=== PATIENT | male | born 1960 | race Caucasian/White ===

== ENCOUNTER 2022-08-12 13:17 | Day surgery (SDC) | payer SELFPAY ==
[2022-08-12] MEDS ORDERED: MORPHINE 4 MG/ML SYR ONE ×2 (13:41→17:51)
[2022-08-12] MEDS ORDERED: NA CHLORIDE 0.9% 1,000 ML ONE ×2 (13:41→16:19)
[2022-08-12] MEDS ORDERED: ONDANSETRON 4 MG/2 ML VIAL ONE ×2 (13:41→21:03)
[2022-08-12 14:08] LABS: Absolute Lymphocytes (CBC) 1.4 K/uL (0.7-4.9); Hematocrit 41.3 % (39.6-49.0); Lymphocytes % 10.2 % (15.3-44.8); MCV 90.7 fL (80-100); MPV 7.9 fL (7.6-11.3); RBC Red Blood Cell Count 4.56 M/uL (4.33-5.43)
[2022-08-12 14:26] LABS: Bilirubin Total 0.6 mg/dL (0.2-1.0); Protein, Total 7.9 g/dL (6.4-8.2)
[2022-08-12 14:29] LABS: Potassium 4.2 mmol/L (3.5-5.1)
[2022-08-12 15:11] LABS: Urine Blood 1+ (Negative); Urine Glucose Negative (Negative); Urine Protein 2+ (Negative); Urine Specific Gravity 1.025 (1.005-1.030)
--- NOTE | 2022-08-12 15:12 | RAD REPORT ---
EXAM DESCRIPTION: CT - Abdomen Pelvis W Contrast - 08/12/2022 2:56 pm CLINICAL HISTORY: Abdominal pain/right lower quadrant pain COMPARISON: none. TECHNIQUE: Computed axial tomography of the abdomen pelvis was obtained. 100 cc Isovue-300 was admin istered intravenously. Oral contrast was not requested which limits evaluation of bowel and appendix All CT scans are performed using dose optimization technique as appropriate and may include automated exposure control or mA/KV adjustment according to patient size. FINDINGS: Multiple bilateral renal calculi Mild right hydronephrosis. A 7 millimeter calculus proximal right ureter. Mild fatty infiltration liver. Small cyst. Spleen, pancreas and adrenals unremarkable. Mild enlargement of the appendix. It is not fluid-filled. No stranding within the adjacent fat. Small right and small to moderate left inguinal hernias contain fat. Prostate gland mildly enlarged. No evidence of diverticulitis. Post surgical changes involve the spine. Small umbilical hernia. Small hiatal hernia IMPRESSION: 7 millimeter calculus proximal right ureter resulting in mild right hydronephrosis Mild enlargement of the appendix. This probably is a normal finding for the patient given the lack of stranding within the adjacent fat and lack of fluid within the appendix. However, this should be cor related clinically.
[2022-08-12 16:44] LABS: SARS-CoV-2 Antigen Rapid Res Negative (Negative)
--- NOTE | 2022-08-12 20:36 | ER ---
Nurse's Notes [facility] Name: Renaldo Estrella Age: 62 yrs Sex: Male : 1960 Arrival Date: 08/12/2022 Time: 13:18 Bed 13 Private MD: Diagnosis: Hydronephrosis with renal and ureteral calculous obstruction Presentation: 08/12 13:31 Chief complaint: Patient states: he started having right lower abdominal pain and right ap3 flank pain last night, and into this morning. patient also reports difficulty urinating since this morning. patient states pain is 10/10. patient also reports nausea and vomiting associated with the pain. Coronavirus screen: At this time, the client does not indicate any symptoms associated with coronavirus-19. Ebola Screen: No symptoms or risks identified at this time. Initial Sepsis Screen: Does the patient meet any 2 criteria? No. Patient's initial sepsis screen is negative. Does the patient have a suspected source of infection? No. Patient's initial sepsis screen is negative. Risk Assessment: Do you want to hurt yourself or someone else? Patient reports no desire to harm self or others. Onset of symptoms was August 11, 2022. 13:31 Method Of Arrival: Ambulatory ap3 13:31 Acuity: ANUJ 3 ap3 Triage Assessment: 13:35 General: Appears uncomfortable, Behavior is calm, cooperative. Pain: Complains of pain ap3 in right lower quadrant and right lower flank Pain currently is 10 out of 10 on a pain scale. Pain began gradually, 1 day ago. Neuro: Level of Consciousness is awake, alert, obeys commands, Oriented to person, place, time, situation, Gait is steady. Cardiovascular: Patient's skin is warm and dry. Respiratory: Airway is patent Respiratory effort is even, unlabored. GI: Reports nausea, vomiting. Historical: - Allergies: 13:33 No Known Allergies; ap3 - Home Meds: 13:33 gabapentin oral [Active]; losartan-hydrochlorothiazide oral [Active]; fenofibrate oral ap3 [Active]; amlodipine oral [Active]; rosuvastatin oral [Active]; - PMHx: 13:33 Hypertensive disorder; ap3 - Immunization history:: Client reports having NOT received the Covid vaccine. Flu vaccine is not up to date. - Social history:: Smoking status: Patient reports the use of cigarette tobacco products, smokes one pack cigarettes per day. Screenin:36 [facility] ED Fall Risk Assessment (Adult) History of falling in the last 3 months, ap3 including since admission No falls in past 3 months (0 pts). Abuse screen: Denies threats or abuse. Nutritional screening: No deficits noted. Tuberculosis screening: No symptoms or risk factors identified. Assessment: 14:30 Reassessment: Patient appears in no apparent distress at this time. patient states "I kr3 feel so much better, the medication worked". 15:30 Reassessment: Patient appears in no apparent distress at this time. Patient states kr3 symptoms have improved. 16:29 Reassessment: Patient appears in no apparent distress at this time. Patient and/or kr3 family updated on plan of care and expected duration. Pain level reassessed. Patient is alert, oriented x 3, equal unlabored respirations, skin warm/dry/pink. 17:30 Reassessment: Patient appears in no apparent distress at this time. pain is starting to kr3 return. 18:33 Reassessment: Patient appears in no apparent distress at this time. Patient and/or kr3 family updated on plan of care and expected duration. Pain level reassessed. Patient is alert, oriented x 3, equal unlabored respirations, skin warm/dry/pink. 19:34 General: Appears uncomfortable, Behavior is calm, cooperative, appropriate for age. aa9 Pain: Denies pain. Neuro: Level of Consciousness is awake, alert, obeys commands, Oriented to person, place, time, situation. Respiratory: Airway is patent Respiratory effort is even, unlabored. 20:34 Reassessment: Patient appears in no apparent distress at this time. Patient and/or aa9 family updated on plan of care and expected duration. Pain level reassessed. OR nurse at bedside with daughter. 20:39 Reassessment: Patient appears in no apparent distress at this time. Patient is alert, aa9 oriented x 3, equal unlabored respirations, skin warm/dry/pink. Patient denies pain at this time. Vital Signs: 13:31 BP 158 / 85; Pulse 73; Resp 18; Temp 97.9; Pulse Ox 97% ; Weight 105.23 kg; Height 5 ap3 ft. 7 in. (170.18 cm); Pain 10/10; 15:30 BP 125 / 74; Pulse 86; Resp 17; Pulse Ox 96% on R/A; kr3 16:30 BP 134 / 78; Pulse 78; Resp 17; Pulse Ox 98% on R/A; kr3 17:30 BP 128 / 71; Pulse 76; Resp 17; Pulse Ox 98% on R/A; kr3 18:37 BP 117 / 66; Pulse 80; Resp 17; Pulse Ox 96% on R/A; kr3 19:15 BP 132 / 72; Pulse 73; Resp 19 S; Pulse Ox 97% ; aa9 20:15 BP 133 / 65; Pulse 76; Resp 19 S; Pulse Ox 96% on R/A; aa9 13:31 Body Mass Index 36.34 (105.23 kg, 170.18 cm) ap3 ED Course: 13:18 Patient arrived in ED. as 13:20 Martín Mo PA is PHCP. jmm 13:20 Kameron Yan MD is Attending Physician. jmm 13:28 Lorna Lehman RN is Primary Nurse. kr3 13:33 Triage completed. ap3 13:37 Arm band placed on right wrist. ap3 13:37 Patient has correct armband on for positive identification. Placed in gown. Bed in low ap3 position. Call light in reach. Side rails up X 1. Pulse ox on. NIBP on. Door closed. Noise minimized. 14:01 Inserted saline lock: 22 gauge in right antecubital area, using aseptic technique. kr3 14:01 Missed attempt(s): 20 gauge in right antecubital area. Bleeding controlled, band aid kr3 applied, catheter tip intact. 14:58 CT Abd/Pelvis - IV Contrast Only In Process Unspecified. EDMS 16:26 SARS RAPID Sent. kr3 20:35 Milton Solano MD is Hospitalizing Provider. pm1 20:38 No provider procedures requiring assistance completed. Patient admitted, IV remains in aa9 place. Administered Medications: 14:01 Drug: NS 0.9% 1000 ml Route: IV; Rate: 1 bolus; Site: right antecubital; kr3 18:17 Follow up: Response: No adverse reaction; IV Status: Completed infusion; IV Intake: kr3 1000ml 14:01 Drug: Zofran (Ondansetron) 4 mg Route: IVP; Site: right antecubital; kr3 18:18 Follow up: Response: No adverse reaction kr3 14:01 Drug: morphine 4 mg Route: IVP; Infused Over: 4 mins; Site: right antecubital; kr3 18:18 Follow up: Response: No adverse reaction; RASS: Alert and Calm (0) kr3 17:25 Drug: NS 0.9% 1000 ml Route: IV; Rate: 1 bolus; Site: left forearm; kr3 20:39 Follow up: Response: No adverse reaction; IV Status: Infusion continued upon admission; aa9 IV Intake: 700ml 18:08 Drug: morphine 4 mg Route: IVP; Infused Over: 4 mins; Site: right antecubital; kr3 20:40 Follow up: Response: No adverse reaction aa9 Medication: 20:39 VIS not applicable for this client. aa9 Intake: 18:17 IV: 1000ml; Total: 1000ml. kr3 20:39 IV: 700ml; Total: 1700ml. aa9 Outcome: 20:36 Decision to Hospitalize by Provider. pm1 20:38 Admitted to OR accompanied by nurse, via wheelchair, with chart. aa9 20:38 Condition: stable 20:38 Instructed on the need for admit. 20:39 Patient left the ED. aa9 Signatures: Dispatcher [employer] EDMS Martín Mo PA PA jmm Martinez, Amelia as Marinas, Patrick, RUBBER FLAP TUBER MACHINE OPERATOR RUBBER FLAP TUBER MACHINE OPERATOR pm1 Natalia Jaime RN RN danica3 Maricel Davis RN RN aa9 Lorna Lehman RN RN kr3 Corrections: (The following items were deleted from the chart) 16:29 16:27 Reassessment: kr3 kr3 16:50 16:29 BP 125 / 74; Pulse 86bpm; Resp 17bpm; Pulse Ox 96% RA; kr3 kr3
--- NOTE | 2022-08-12 20:36 | EDPHYS ---
Physician Documentation [facility] Name: Renaldo Estrella Age: 62 yrs Sex: Male : 1960 Arrival Date: 08/12/2022 Time: 13:18 Bed 13 Private MD: ED Physician Kameron Yan HPI: 08/12 13:31 This 62 yrs old Male presents to ER via Ambulatory with complaints of Abdominal Pain, jmm Vomiting. 13:31 The patient presents with abdominal pain. Onset: The symptoms/episode began/occurred jmm gradually, yesterday. The symptoms radiate to. This is a 62-year-old male with history of hypertension that presents to the emergency department with complaints of right flank pain and right lower abdominal pain beginning last night. Patient states he is been vomiting all day. Unable to tolerate fluids.. Historical: - Allergies: 13:33 No Known Allergies; ap3 - Home Meds: 13:33 gabapentin oral [Active]; losartan-hydrochlorothiazide oral [Active]; fenofibrate oral ap3 [Active]; amlodipine oral [Active]; rosuvastatin oral [Active]; - PMHx: 13:33 Hypertensive disorder; ap3 - Immunization history:: Client reports having NOT received the Covid vaccine. Flu vaccine is not up to date. - Social history:: Smoking status: Patient reports the use of cigarette tobacco products, smokes one pack cigarettes per day. ROS: 13:31 Constitutional: Negative for fever, chills, and weight loss, Cardiovascular: Negative jmm for chest pain, palpitations, and edema, Respiratory: Negative for shortness of breath, cough, wheezing, and pleuritic chest pain. 13:31 Abdomen/GI: Positive for abdominal pain, nausea and vomiting. 13:31 Back: Positive for flank pain, on the right. 13:31 All other systems are negative. Exam: 13:31 Constitutional: This is a well developed, well nourished patient who is awake, alert, jmm and in no acute distress. Head/Face: atraumatic. Eyes: EOMI, no conjunctival erythema appreciated ENT: Moist Mucus Membranes Neck: Trachea midline, Supple Chest/axilla: Normal chest wall appearance and motion. Cardiovascular: Regular rate and rhythm. No edema appreciated Respiratory: Normal respirations, no respiratory distress appreciated 13:31 Skin: General appearance color normal MS/ Extremity: Moves all extremities, no obvious deformities appreciated, no edema noted to the lower extremities Neuro: Awake and alert Psych: Behavior is normal, Mood is normal, Patient is cooperative and pleasant 13:31 Abdomen/GI: Inspection: abdomen appears normal, Bowel sounds: normal, Palpation: soft, mild abdominal tenderness. 13:31 Back: CVA tenderness, that is moderate, is noted on the right. Vital Signs: 13:31 BP 158 / 85; Pulse 73; Resp 18; Temp 97.9; Pulse Ox 97% ; Weight 105.23 kg; Height 5 ap3 ft. 7 in. (170.18 cm); Pain 10/10; 15:30 BP 125 / 74; Pulse 86; Resp 17; Pulse Ox 96% on R/A; kr3 16:30 BP 134 / 78; Pulse 78; Resp 17; Pulse Ox 98% on R/A; kr3 17:30 BP 128 / 71; Pulse 76; Resp 17; Pulse Ox 98% on R/A; kr3 18:37 BP 117 / 66; Pulse 80; Resp 17; Pulse Ox 96% on R/A; kr3 19:15 BP 132 / 72; Pulse 73; Resp 19 S; Pulse Ox 97% ; aa9 20:15 BP 133 / 65; Pulse 76; Resp 19 S; Pulse Ox 96% on R/A; aa9 13:31 Body Mass Index 36.34 (105.23 kg, 170.18 cm) ap3 MDM: 13:31 Patient medically screened. [facility] 18:45 Data reviewed: vital signs, nurses notes. Consideration of Admission/Observation. [facility] Management of patient was discussed with the following: Procurement Intern: I discussed the patient with Dr. Solano. Will take the patient to the OR for stent placement. I considered the following discharge prescriptions or medication management in the emergency department Medications were administered in the Emergency Department. See MAR. Historians other than the Patient: Daughter/Son: Daughter. Counseling: I had a detailed discussion with the patient and/or guardian regarding: the historical points, exam findings, and any diagnostic results supporting the discharge/admit diagnosis, lab results, radiology results. Transition of care: After a detail discussion of the patient's case, care is transferred to Lalit Bauman NP. ED course: I discussed the patient with Dr. Solano whom recommended stent placement. Patient's normal creatinine is around 0.9 per lab taken earlier this month. Currently 1.52. Patient given IV fluids. Pain is currently under control. I did reevaluate the patient due to the CT findings of borderline appendix. Patient has no guarding or rebound in the right lower quadrant at this time. CT does not reveal any other signs of appendicitis. I do not currently suspect acute appendicitis 1 time of stent placement.. 08/12 13:31 Order name: CBC with Diff; Complete Time: 14:13 [facility] 08/12 13:31 Order name: CMP; Complete Time: 14:32 [facility] 08/12 13:31 Order name: Lipase; Complete Time: 14:32 [facility] 08/12 13:31 Order name: CT Abd/Pelvis - IV Contrast Only; Complete Time: 15:13 [facility] 08/12 15:11 Order name: Urine Dipstick-Ancillary; Complete Time: 15:13 [facility] 08/12 16:06 Order name: SARS RAPID; Complete Time: 16:58 [facility] 08/12 13:31 Order name: IV Saline Lock; Complete Time: 14:01 [facility] 08/12 13:31 Order name: Labs collected and sent; Complete Time: 14:01 [facility] 08/12 13:31 Order name: Urine Dipstick-Ancillary (obtain specimen); Complete Time: 15:24 [facility] 08/12 16:18 Order name: EKG - Nurse/Tech; Complete Time: 16:47 jm Administered Medications: 14:01 Drug: NS 0.9% 1000 ml Route: IV; Rate: 1 bolus; Site: right antecubital; kr3 18:17 Follow up: Response: No adverse reaction; IV Status: Completed infusion; IV Intake: kr3 1000ml 14:01 Drug: Zofran (Ondansetron) 4 mg Route: IVP; Site: right antecubital; kr3 18:18 Follow up: Response: No adverse reaction kr3 14:01 Drug: morphine 4 mg Route: IVP; Infused Over: 4 mins; Site: right antecubital; kr3 18:18 Follow up: Response: No adverse reaction; RASS: Alert and Calm (0) kr3 17:25 Drug: NS 0.9% 1000 ml Route: IV; Rate: 1 bolus; Site: left forearm; kr3 20:39 Follow up: Response: No adverse reaction; IV Status: Infusion continued upon admission; aa9 IV Intake: 700ml 18:08 Drug: morphine 4 mg Route: IVP; Infused Over: 4 mins; Site: right antecubital; kr3 20:40 Follow up: Response: No adverse reaction aa9 Disposition Summary: 08/12/22 20:36 Hospitalization Ordered Hospitalization Status: Observation pm1 Provider: Milton Solano pm1 Location: Operating Room pm1 Condition: Stable pm1 Problem: new pm1 Symptoms: have improved pm1 Bed/Room Type: Standard pm1 Room Assignment: pm1 Diagnosis - Hydronephrosis with renal and ureteral calculous obstruction pm1 Forms: - Medication Reconciliation Form pm1 - SBAR form pm1 Signatures: Dispatcher [employer] EDMS Martín Mo PA PA inderm Lalit Bauman, NICOLE HORTICULTURAL MANAGER pm1 Natalia Jaime RN RN ap3 Lorna Lehman RN RN kr3 Maricel Davis RN aa9
[2022-08-12] MEDS ORDERED: Ringers Lactate 1,000 ML IV ONE (20:56)
[2022-08-12] MEDS ORDERED: FENTANYL CITR 100 MCG/2 ML ONE (21:02)
[2022-08-12] MEDS ORDERED: MIDAZOLAM HCL 2 MG/2 ML INJ ONE (21:02)
[2022-08-12] MEDS ORDERED: LIDOCAINE 1% MPF 5 ML VIAL ONE (21:02)
[2022-08-12] MEDS ORDERED: propofoL 200 MG/20 ML VIAL IV ONE (21:02)
[2022-08-12] MEDS ORDERED: KETOROLAC 30 MG/ML INJ ONE (21:03)
[2022-08-12] MEDS ORDERED: CEFAZOLIN SODIUM 1 GM/VIAL ONE (21:05)
[2022-08-12] MEDS ORDERED: PHENAZOPYRIDINE 100MG TAB PO ONE ×2 (22:00→22:17)
[2022-08-12] MEDS ORDERED: CODEINE 30MG/APAP 300MG TAB PO PRN ×2 (22:00→22:04)
[2022-08-12] MEDS ORDERED: CODEINE 30MG/APAP 300MG TAB ONE (22:17)
[2022-08-12 22:18] VITALS: TEMP 99; O2SAT 99
--- NOTE | 2022-08-12 22:22 | RAD REPORT ---
EXAM DESCRIPTION: RAD - Cystography - 08/12/2022 9:49 pm CLINICAL HISTORY: ICD N 20.0 FINDINGS: 5 fluoroscopic spot images obtained. Fluoroscopy time 0 minutes Right ureter was cannulated and contrast administered. Subsequently an ureteral stent was placed. Exa mination was performed by Dr Solano
[2022-08-12 22:44] VITALS: BP 129/78
--- NOTE | 2022-08-13 03:29 | CON ---
Reason For Consultation: Right flank pain. History Of Present Illness: Mr. Estrella is a 62-year-old gentleman with hypertension status post chol ecystectomy who presents with right flank pain that radiated into his right lower quadrant and inguin al scrotal region that began last night around 7 p.m. This was associated with some nausea and vomit ing, and he also was feverish with chills during the night. Eventually, he presented to the Emergenc y Department for evaluation and was evaluated as follows. CT scan on 08/12/2022 of abdomen and pelvis with contrast revealed a 7 mm calculus in proximal right ureter with mild right hydronephrosis. There was also questionable enlargement of the appendix witho ut stranding of the adjacent fat suggestive of actual appendicitis. As a result, I was contacted by the Emergency Department, who was concerned about his pain being pote ntially secondary to the ureterolithiasis, but also possible appendicitis. Past Medical History: Hypertension. Past Surgical History: Cholecystectomy and L4-5 fusion. Allergies: NONE KNOWN. Social History: He is an active smoker of 1 pack per day and has done so for 30 years. Medications: Reviewed. Physical Examination: General: The patient was well appearing and in no acute distress at the time of my evaluation, susi g been made comfortable in the Emergency Department. He was alert, awake, and oriented x3. There wa s no dyspnea or sign of respiratory distress. Abdomen: Soft, nontender, moderately obese. He was resting comfortably in the stretcher. Laboratory Analysis: Revealed a creatinine of 1.5 with a prior baseline creatinine of less than 0.9. Assessment And Recommendations: This is a 62-year-old gentleman with hypertension, status post shabnam cystectomy who has had a prior episode of stones status post extracorporeal shock wave lithotripsy an d now with right 7 mm proximal ureteral calculus with hydronephrosis, anorexia, and acute kidney inju ry. I counseled him on the recommendation for placement of a right ureteral stent to allow recovery of th e kidney function and to relieve the obstruction causing the kidney injury. I explained the potentia l for stent pain in detail, and discussed that the stent is a foreign body that will need to be remov ed within 6 months maximum. I explained the plan for subsequent follow up in my office to discuss de finitive surgical management of the stone as it is unlikely to pass with a stent in place. Subsequen tly the patient will require metabolic evaluation given his recurrent stone forming events. WR/MODL Voice ID: [id number] Report ID: [id number]
--- NOTE | 2022-08-13 03:40 | OP ---
Surgeon: ALONZO PEDROZA Preoperative Diagnoses: 1.Right ureterolithiasis. 2.Right hydronephrosis. 3.Acute kidney injury. Postoperative Diagnoses: 1.Right ureterolithiasis. 2.Right hydronephrosis. 3.Acute kidney injury. Principal Procedures: 1.Cystoscopy. 2.Right retrograde pyelography. 3.Right ureteral stent placement. Indication For Procedure: Mr. Ritchie is a 62-year-old gentleman with hypertension and history of cho lecystectomy who is a recurrent stone former and presented to the Emergency Department with a 7 mm pr oximal ureteral calculus on the right with hydronephrosis, flank pain, anorexia, and acute kidney inj ury with a creatinine of 1.5 over his baseline of 0.9. As a result, he was counseled on the recommen dation for right ureteral stent placement in advance of definitive surgical management via ureterosco py with laser lithotripsy. Procedure In Detail: The patient was consented in the preoperative holding area before being transfe rred to the operative suite where general anesthesia was induced. He was given Ancef 2 g IV antimicr obial prophylaxis and Pneumoboots were provided for DVT prophylaxis. He was placed supine on the ope rative table and then in the lithotomy position, padded and secured to the table appropriately. His genitalia were prepped with Hibiclens and he was draped in standard fashion. The case was begun usin g a 22-Filipino rigid cystoscope to traverse the urethra and into the bladder with ease. The bladder w as surveyed briefly, and there were no papillary mucosal lesions, foreign bodies, or stones noted thr oughout. The ureteral orifices were orthotopic in location and there was no evident hematuria. The right ureteral orifice was cannulated using the tip of a 5-Filipino ureteral access catheter and a retr ograde pyelogram was performed. Right retrograde pyelography: Using a 70:30 mixture of Omnipaque and saline, spot fluoroscopic image ry was obtained along multiple points to delineate the collecting system and anatomy. On initial spo t fluoroscopic imagery, the right kidney had delayed retention of contrast within the collecting syst em and the proximal ureter down to the level of the mid proximal ureter where further contrast did no t drain. There was moderate hydronephrosis with some moderate caliectasis. The ureter was also dila jose to that point. I then injected contrast in a retrograde fashion and delineated the distal ureter and the contrast passed the point of obstruction with the stone and into the renal pelvis and calyce s with ease, delineating them perfectly. As a result, I passed the Bentson guidewire via the 5-Frenc h ureteral access catheter and it did coil in the upper pole of the kidney as evident fluoroscopicall y. Over the Bentson guidewire, I then passed a 6 x 26-Filipino double-J ureteral stent with a coil obs erved fluoroscopically in the upper pole and one cystoscopically formed in the bladder. His bladder was then decompressed off fluid and urine, and he was awakened from general anesthesia after the scop e was removed. He was taken out of the lithotomy position. He was then transferred to a stretcher a nd then to the recovery room in good condition. Complications: None. Discharge Disposition: He should follow up in the Urology Clinic for evaluation and discussion in pr eparation for definitive management via right ureteroscopy with laser lithotripsy and stent exchange in the coming weeks. I counseled the patient preoperatively that the stent was a foreign body that m ust be removed to prevent complications, which I detailed to him. REGULO/MODL Voice ID: [id number] Report ID: [id number]
--- NOTE | 2022-08-13 13:16 | EKG ---
Test Date: 2022-08-12 Test Time: 16:42:50 Diabetes Clinical Manager: NICOLE MEASUREMENT RESULTS: Intervals: Rate: 78 TN: 174 QRSD: 124 QT: 396 QTc: 451 Hitchcock: P: 49 TN: 174 QRS: 47 T: 43 INTERPRETIVE STATEMENTS: Normal sinus rhythm RSR' or QR pattern in V1 suggests right ventricular conduction delay Borderline ECG No previous ECG available for comparison Electronically Signed On 08-13-22 13:14:50 PHOTOGRAPHIC ENLARGER OPERATOR by Tai Vargas
== END 2022-08-12 22:40 | disposition home or self-care (01) ==
LOC: ER 13:17 → DS 20:56
PROVIDERS: ATTEND Urology
PROC: 0T768DZ Dilation of Right Ureter with Intraluminal Device, Via Natural or Artificial Opening Endoscopic (ICD-10-PCS; principal; 2022-08-12 21:00)
DX: N13.2 Hydronephrosis with renal and ureteral calculous obstruction (principal); N17.9 Acute kidney failure, unspecified
CPT/HCPCS: 36415; 51600; 74177; 74430; 80053; 81003; 83690; 85025; 87811; 93005; J0690; J2001; J2250; J2405; J2704; J3010; J7030; J7120; Q9967

== ENCOUNTER 2022-09-28 08:27 | Day surgery (SDC) | payer SELFPAY ==
[2022-09-14 14:19] LABS: Absolute Lymphocytes (CBC) 2.5 K/uL (0.7-4.9); Hematocrit 39.4 % (39.6-49.0); Lymphocytes % 23.3 % (15.3-44.8); MCV 89.7 fL (80-100); MPV 7.9 fL (7.6-11.3); RBC Red Blood Cell Count 4.39 M/uL (4.33-5.43)
[2022-09-14 14:22] LABS: Protime INR 1.07
--- NOTE | 2022-09-14 14:25 | RAD REPORT ---
EXAM DESCRIPTION: RAD - Chest Pa And Lat (2 Views) - 09/14/2022 1:02 pm CLINICAL HISTORY: Pre op pending laser lithotripsy COMPARISON: No comparisons FINDINGS: Lines: None. Lungs: No evidence of edema or pneumonia. Pleural: No significant pleural effusions or pneumothorax. Cardiac: The heart size is within normal limits. Mediastinum: Within normal limits. Bones: No acute fractures. Other: None IMPRESSION: No acute cardiopulmonary disease.
[2022-09-14 14:32] LABS: Potassium 4.2 mmol/L (3.5-5.1)
[2022-09-28] MEDS ORDERED: Ringers Lactate 1,000 ML IV ONE (08:48)
[2022-09-28] MEDS ORDERED: propofoL 200 MG/20 ML VIAL IV ONE (09:30)
[2022-09-28] MEDS ORDERED: LIDOCAINE 1% MPF 5 ML VIAL ONE (09:30)
[2022-09-28] MEDS ORDERED: MIDAZOLAM HCL 2 MG/2 ML INJ ONE (09:30)
[2022-09-28] MEDS ORDERED: FENTANYL CITR 100 MCG/2 ML ONE (09:30)
[2022-09-28] MEDS ORDERED: ONDANSETRON 4 MG/2 ML VIAL ONE (09:31)
[2022-09-28] MEDS: CEFAZOLIN SODIUM 2 GM/VIAL ONE ×2 (09:47→09:55)
[2022-09-28] MEDS ORDERED: ROCURONIUM 50 MG/5 ML VIAL IV ONE (09:58)
[2022-09-28] MEDS ORDERED: Mastisol Adhesive Liq ONE (10:38)
[2022-09-28] MEDS ORDERED: GLYCOPYRROLATE 0.2 MG/ML SYR ONE (10:39)
[2022-09-28] MEDS ORDERED: NEOSTIGMINE 1 MG/ML -10 ML VIAL ONE (10:43)
[2022-09-28] MEDS ORDERED: KETOROLAC 30 MG/ML INJ ONE (10:43)
[2022-09-28] MEDS ORDERED: HYDROCODONE/APAP 5/325 MG TAB PO PRN (11:14)
[2022-09-28] MEDS ORDERED: PHENAZOPYRIDINE 100MG TAB PO ONE ×2 (11:14→12:08)
[2022-09-28] MEDS: MORPHINE 4 MG/ML SYR ONE ×2 (11:20→11:25)
[2022-09-28] MEDS ORDERED: MEPERIDINE HCL 25 MG/ML SYR ONE (11:23)
[2022-09-28] MEDS ORDERED: MORPHINE 4 MG/ML SYR ONE (11:35)
[2022-09-28] MEDS ORDERED: HYDROCODONE/APAP 5/325 MG TAB ONE (12:08)
--- NOTE | 2022-09-28 12:19 | RAD REPORT ---
EXAM DESCRIPTION: RAD - Urethrocystogrphy Retrograde - 09/28/2022 10:59 am CLINICAL HISTORY: RIGHT STENT EXCHANGE COMPARISON: Cystography dated 08/12/2022 FINDINGS: Total fluoro time: 0.6 minutes
[2022-09-28 12:20] VITALS: O2SAT 98
[2022-09-28 13:16] VITALS: BP 115/69; TEMP 97.6
--- NOTE | 2022-09-29 08:28 | OP ---
Surgeon: ALONZO PEDROZA Preoperative Diagnosis: Right obstructive ureterolithiasis, 7 mm. Postoperative Diagnoses: 1.Right obstructive ureterolithiasis, 7 mm. 2.Right nephrolithiasis, 5 mm. Principal Procedures: 1.Right ureteroscopy with pyeloscopy. 2.Laser lithotripsy. 3.Right ureteral stent exchange. Indication For Procedures: Mr. Estrella presented to the Urology Clinic with an obstructing right uret eral calculus and signs of acute kidney injury resulting in need for stent placement. This was done and he presents today for definitive management of the stones. Because the CT was done with IV contr ast, it was difficult to determine the volume of any potential nephrolithiasis. He did have a visibl e 8 mm stone on the left side. Procedure In Detail: The patient was consented in the preoperative holding area before being transfe rred to operative suite where general anesthesia was induced. He was given Ancef 2 g IV antimicrobia l prophylaxis and Pneumoboots were provided for DVT prophylaxis. He was placed in the lithotomy posi tion, padded and secured to the table appropriately. His genitalia were prepped with Hibiclens and h e was draped in standard fashion. The case was begun using a 22-Upper Sorbian rigid cystoscope to traverse the urethra and into the bladder with ease. The bladder was decompressed off fluid and urine, and th e ureteral stent was noted to emanate from the right ureteral orifice. Using an alligator grasper, I grasped the tip of the stent and delivered it to the meatus, leaving the proximal tip within the mid ureter as evidenced fluoroscopically. I then passed a Sensor wire up the stent and coiled it in the collecting system putatively. Over the Sensor wire, I removed the stent leaving the wire in place a nd passed a dual-lumen catheter into the mid distal ureter as evidenced fluoroscopically. Right retrograde pyelography: Using a 70:30 mixture of Omnipaque and saline, contrast was injected v ia the second lumen of the dual-lumen catheter and did propagate up a relatively nondilated distal in to the mid and proximal ureteral segment before entering the renal pelvis, which was nondilated. The re were no evident fluoroscopic calculi present. As a result, I passed a Weave guidewire into his upper pole of the kidney alongside the indwelling Sensor wire, which was already there. I then remov ed the dual-lumen catheter and attempted to pass the flexible ureteroscope, but it got hung up at the ureteral orifice. As a result, I required a ureteral access sheath to intubate the ureteral orifice before, I was then able to navigate the flexible ureteroscope via the ureteral orifice and the acces s sheath all the way up the ureter into the upper pole evidenced fluoroscopically. I then surveyed t he calyces of the kidney ureteroscopically and within the upper mid pole posterior calyx, there were Chris's plaques, 2 calculi noted, each about 2-3 mm in diameter for a total of about 5 mm of calcul i present. I utilized a 200 nm laser fiber at power setting of 0.8 joules and 15 hertz to fragment t hose calculi, releasing them from their imbedded position within the papilla. I fragmented those sto tera until the dust was the size of the laser fiber approximately, but certainly less than 0.5 mm in size. I then surveyed into the lower pole calyces where I identified an additional conglomeration of small calculi approximately 2-3 mm each, and 3 stones were noted in those locations. I then identif ied the 7 mm calculus, which had been delivered from the ureter into the lower pole infundibulum, and I was able to fragment this using the laser fiber into dust around the size of the laser fiber, cert ainly less than 1 mm in diameter. Once complete fragmentation of all the stones had been accomplishe d, I surveyed through the calyces again fragmenting any stones of significant size until I was happy with the dust that had been formed. I then backed the scope into the renal pelvis, which was surveye d before I surveyed down into the proximal, mid, and distal ureter removing the ureteral access sheat h along the way. With no additional calculi noted along the course of the ureter, a lot of the stone dust was within the lumen of the ureteral access sheath and this was collected and sent for chemical analysis. I then removed the ureteroscope and backloaded the cystoscope over the indwelling safety Sensor wire. I then passed a 6-Upper Sorbian x 26 cm double-J ureteral stent, left with its string tetherin g it into his collecting system with a coil observed fluoroscopically in the upper pole and 1 cystosc opically formed in the bladder. The tether of the stent was then secured to the head of his penis us ing Mastisol and Steri-Strips after I decompressed his bladder off fluid and urine. He was then take n out of the lithotomy position, awakened from general anesthesia, transferred to a stretcher, and th en transferred to the recovery room in good condition. Complications: None. Discharge Disposition: As the left ureteral stone, which was 8 mm in diameter was observed and visib le fluoroscopically, he would be a reasonable candidate for shockwave lithotripsy on the left side. As a result, followup should be established with me to discuss scheduling left ESWL. He subsequently will require definitive metabolic stone profile assessment once that left stone is also managed. As far as the tethered ureteral stent, this may be removed in 3 to 5 days, and I will discharge him wit h at least 5 days of an antimicrobial to cover him until the stent is removed because of the tether. REGULO/BENSON Voice ID: [id number] Report ID: [id number]
== END 2022-09-28 13:08 | disposition home or self-care (01) ==
LOC: OR 08:27
PROVIDERS: ATTEND Urology
PROC: 0T768DZ Dilation of Right Ureter with Intraluminal Device, Via Natural or Artificial Opening Endoscopic (ICD-10-PCS; 2022-09-28)
PROC: 0TF68ZZ Fragmentation in Right Ureter, Via Natural or Artificial Opening Endoscopic (ICD-10-PCS; principal; 2022-09-28 09:30)
DX: N20.1 Calculus of ureter (principal)
CPT/HCPCS: 36415; 51610; 71046; 74450; 80048; 82360; 85025; 85610; 87086; 87088; 88300; J2001; J2175; J2250; J2405; J2704; J2710; J3010; J7120

== ENCOUNTER 2022-10-12 09:08 | Day surgery (SDC) | payer SELFPAY ==
[2022-10-12] MEDS ORDERED: CEFAZOLIN SODIUM 2 GM/VIAL ONE (09:26)
[2022-10-12] MEDS ORDERED: Ringers Lactate 1,000 ML IV ONE (09:26)
[2022-10-12] MEDS ORDERED: MIDAZOLAM HCL 2 MG/2 ML INJ ONE (11:21)
[2022-10-12] MEDS ORDERED: propofoL 200 MG/20 ML VIAL IV ONE (11:21)
[2022-10-12] MEDS ORDERED: LIDOCAINE 2% MPF 5 ML VIAL ONE (11:21)
[2022-10-12] MEDS ORDERED: FENTANYL CITR 100 MCG/2 ML ONE (11:21)
[2022-10-12] MEDS ORDERED: ONDANSETRON 4 MG/2 ML VIAL ONE (11:21)
[2022-10-12] MEDS ORDERED: CODEINE 30MG/APAP 300MG TAB PO PRN (12:35)
[2022-10-12] MEDS ORDERED: KETOROLAC 30 MG/ML INJ ONE (13:05)
[2022-10-12] MEDS ORDERED: CODEINE 30MG/APAP 300MG TAB ONE (13:51)
[2022-10-12 14:14] VITALS: BP 129/71; TEMP 97.6; O2SAT 97
--- NOTE | 2022-10-12 19:11 | OP ---
Surgeon: ALONZO PEDROZA Preoperative Diagnosis: Left nephrolithiasis, 3 mm. Postoperative Diagnosis: Left nephrolithiasis, 3 mm. Procedure: Left extracorporeal shockwave lithotripsy. Indication For Procedure: Mr. Estrella is a 62-year-old gentleman, recurrent stone former, who was rec ently treated with ureteroscopy and laser lithotripsy for obstructive ureterolithiasis with nephrolit hiasis on the right. Because he had significant volume left nephrolithiasis as well, and it was visi ble fluoroscopically, he elected to proceed with attempted preemptive management via shockwave lithot ripsy. Procedure In Detail: The patient was consented in the preoperative holding area before being transfe rred to the operative suite where general anesthesia was induced. He was given Ancef for antimicrobi al prophylaxis. No pneumo boots were provided. The patient was placed supine with a water bath bene ath his flank and fluoroscopic imagery was used to target the 8 mm stone in the left kidney. The shari atment head was then brought in and the stone was centered in the dorsal, ventral and left right posi tions. Shockwave lithotripsy was then initiated and slowly ramped up over the course of 500 shocks t o a maximum power of 7 with a 2-minute pause given between 200 and 300 shocks. It was continued unti l around 2000 shocks where the stone had significantly diminished in size and composition with only a small residual fragment. As a result, an additional 500 shocks was delivered to ensure complete fra gmentation of the calculus with no significant sized stone fragments are left remnant. As a result, total 2500 shocks was used, and the patient was awakened from general anesthesia before being transfe rred to a stretcher and then transferred to the recovery room in good condition. Complications: None. Discharge Disposition: He may follow up in the Urology Clinic in about 2-3 months with a preclinic K UB to assess for clearance of the stone burden. After about 1 month's time, he may also do a Litholi nk metabolic profile assessment with two 24-hour urine collections and blood work to assess the sourc e of his metabolic stone former risk. WR/MODL Voice ID: [id number] Report ID: [id number]
== END 2022-10-12 14:02 | disposition home or self-care (01) ==
LOC: OR 09:08
PROVIDERS: ATTEND Urology
PROC: 0TF4XZZ Fragmentation in Left Kidney Pelvis, External Approach (ICD-10-PCS; principal; 2022-10-12 10:30)
DX: N20.0 Calculus of kidney (principal); I10 Essential (primary) hypertension; R06.83 Snoring; E66.9 Obesity, unspecified; Z68.35 Body mass index [BMI] 35.0-35.9, adult; Z79.899 Other long term (current) drug therapy; F17.200 Nicotine dependence, unspecified, uncomplicated
CPT/HCPCS: 50590; 87086; 87088; J2001; J2250; J2405; J2704; J3010; J7120

== ENCOUNTER 2022-12-05 09:12 | Emergency (ER) | payer SELFPAY ==
--- OUTSIDE RECORDS SUMMARY | 2022-12-05 09:15 | XMS REPORT | Continuity of Care Document ---
:1960 Author Organization [facility] t Address [address] [place] [address] [place] [id number] Care Team Providers Name Role Phone RUBÉN HARMON Attending Clinician Unavailable Alexys Dotson Attending Clinician Unavailable RUBÉN HARMON Admitting Clinician Unavailable Problems Condition Condition Condition Status Onset Resolution Last Treating Co mments Source Name Details Category Date Date Treatment Clinician Date [id number] BPH loc w Problem Com mon urin [facility]S [facility] Ureterolit Ureterolit Problem C ommon hiasis hiasis [facility] [id number] Left Problem [facility] Allergies, Adverse Reactions, Alerts Allergy Allergy Status Severity Reaction(s) Onset Inactive Treating Comm ents Source Name Type Date Date Clinician No known Miscella Active U Not 2020-0 [facility] All[facility]ie Allergy 18:24: l s 23 ([facility] Denies Miscella Active U Not 2020-0 [facility] latex neous Specified 3-08 [facility] allergy Allergy 18:24: l 23 ([facility]) No known Miscella Active U Not 2020-0 [facility] ne[facility] Specified 3-08 [facility] Allergie Allergy 18:24: l s 23 ([facility]) Denies Miscella Active U Not 2020-0 [facility] latex neous Specified 3- [facility] allergy Allergy 18:24: l 23 ([facility]) No known Miscella Active U Not 2020-0 [facility] ne[facility] Specified 3- [facility] Allergie Allergy 18:24: l s 23 ([facility]) Denies Miscella Active U Not 2020-0 [facility] latex neous Specified 3 [facility] allergy Allergy 18:24: l 23 ([facility]) No known Miscella Active U Not 2020-0 [facility] neous Specified 09-22 [facility] Allergie Allergy 18:24: l s 23 ([facility]) Denies Miscella Active U Not 2020-0 [facility] latex neous Specified 09-22 [facility] allergy Allergy 18:24: l 23 ([facility]) No known Miscella Active U Not 2020-0 [facility] neous Specified 09-22 [facility] Allergie Allergy 18:24: l s 23 ([facility]) Denies Miscella Active U Not 2020-0 [facility] latex neous Specified 09-22 [facility] allergy Allergy 18:24: l 23 ([facility]) No known Miscella Active U Not 2020-0 [facility] neous Specified 09-22 [facility] Allergie Allergy 18:24: l s 23 ([facility]) Denies Miscella Active U Not 2020-0 [facility] latex neous Specified 09-22 [facility] allergy Allergy 18:24: l 23 ([facility]) No known Miscella Active U Not 2020-0 [facility] drug neous Specified 09-22 [facility] Allergie Allergy 18:24: l s 23 ([facility]) Denies Miscella Active U Not 2020-0 [facility] latex neous Specified 09-22 [facility] allergy Allergy 18:24: l 23 ([facility]) No Known NA Active 2019-0 [facility] Allergie 09-22 Hospita s 17:39: l 08 ([facility]) No Known NA Active 2012-0 [facility] Allergie 12-21 Hospita s 16:02: l 05 ([facility]) Social History Social Habit Start Date Stop Date Quantity Comments Source History of Tobacco Current Smoker Co mmon [facility] Use [facility] Sex Assigned At Com mon [facility] Smoking Status Start Date Stop Date Source Current Smoker 2022-08-23 00:00:00 Common [facility] - [facility] Medications Ordered Filled Start Stop Current Ordering Indication Dosage Frequency Signature Comments Components Source Medication Medication Date Date Medication? Clinician (SIG) Name Name Flomax 0.4 Flomax 0.4 2023- No 1{capsu QD Flomax 0.4 MG MG 08-23 le} MG 00:00: 00:00 00 :00 Fenofibrate Fenofibrate No 1{table QD Fenofibrat 145 MG 145 MG t} e 145 MG Rosuvastati Rosuvastati No 1{table QD Rosuvastat n Calcium n Calcium t} in Calcium 10 MG 10 MG 10 MG Gabapentin Gabapentin No 1{capsu QD Gabapentin 300 MG 300 MG le} 300 MG amLODIPine amLODIPine No 1{table QD amLODIPine Besylate 10 Besylate 10 t} Besylate MG MG 10 MG Losartan Losartan No 1{table QD Losartan Potassium-H Potassium-H t} Potassium- CTZ 100-25 CTZ 100-25 HCTZ MG MG 100-25 MG Vital Signs Vital Name Observation Time Observation Value Comments Source height 2022-08-23 17:00:00 68 [in_i] [facility] weight 2022-08-23 17:00:00 229 [lb_av] [facility] temperature 2022-08-23 17:00:00 98 [degF] [facility] bmi 2022-08-23 17:00:00 34.82 kg/m2 [facility] oximetry 2022-08-23 17:00:00 99 % [facility] respiratory rate 2022-08-23 17:00:00 18 /min Comm on [facility] blood pressure 2022-08-23 17:00:00 163 mm[Hg] Common [facility] - systolic [facility] blood pressure 2022-08-23 17:00:00 77 mm[Hg] Common [facility] - diastolic [facility] Procedures This patient has no known procedures. Encounters Start End Encounter Admission Attending Care Care Encounter Source Date/Time Date/Time Type Type Clinicians Facility Department ID 2022-08-23 Outpatient [facility] [id number] Common 16:40:02 [id number] [facility] 2022-08-23 2022-08-23 OFFICE [facility] [id number] Co mmon 00:00:00 00:00:00 VISIT Martir ANDERSON PT - [facility] LEVEL 3 [facility] 2019-09-23 2019-09-23 [id number] [facility] 15:48:00 15:48:00 [id number] Hospi ta l ([facility]) 2017-07-25 2017-07-25 Outpatient [facility] [id number] [place] 08:38:00 08:38:00 [facility] 2017-01-21 2017-01-21 Outpatient O'Sara, SETENT SETENT [id number] [facility] 08:43:00 08:43:00 [facility] Results Test Description Test Time Test Comments Results Result Sour e Comments SPINE LUMBAR SACR 2019-09-23 [facility] 18:42:[address] [id number] IMAGING REPORTPatient Name: RENALDO ESTRELLA ADate of Service: [id number]: 59 Sex: M Order #: [id number] Room: [facility]: 1960 X-Ray Number: [id number] Record Number: [id number] Hospital Number: [id number] Physician: RUBÉN HARMON TANOrdering Physician: RUBÉN HARMON TANPROCEDURE: SPINE LUMBAR SACRINDICATIONS: DX: Low back painorder sts: painpt chart sts: low back painstarted yesterday, right hip pain HX: HTN, cholecystectomyPSV: KDH6 views lumbosacral spineComparison:NoneFind ings:No spondylolysis. 5 mm degenerative anterolisthesis related to facetarthrosis of L4 on 5 with mild disc space narrowing.No fractures. Otherwise normal alignment. Mild L3-4 and L5-S1 facetarthrosis.Impressio n:1. No fracture or acute subluxation. 5 mm degenerative retrolisthesis atL4-5 with moderate facet arthrosis.This document has been electronically signed by: Morgan Torres MD on09/23/2019 18:42:13Legally authenticated by JANAK AUGUST 2019-09-23 17:56:00 HIP JOINT 2 VIEWS 2019-09-23 [facility] 18:31:[address] [id number] IMAGING REPORTPatient Name: RENALDO ESTRELLA ADate of Service: [id number]: 59 Sex: M Order #: [id number] Room: [facility]: 1960 X-Ray Number: [id number] Record Number: [id number] Hospital Number: [id number] Physician: RUBÉN HARMON TANOrdering Physician: RUBÉN HARMON TANPROCEDURE: HIP JOINT 2 VIEWSINDICATIONS: DX: Low back painorder sts: painpt chart sts: low back painstarted yesterday, right hip pain HX: HTN, cholecystectomyPSV: KDH2 views of the right hipComparison:NoneFindin gs:No fractures. Normal alignment. Mild spurring. Mild greatertrochanteric enthesopathy.Impression: No fracture. Mild degenerative change of the right hip.This document has been electronically signed by: Morgan Torres MD on09/23/2019 18:30:26Legally authenticated by JANAK AUGUST 2019-09-23 18:06:00 URINALYSIS 2019-09-23 17:52:00 Test Item Value Reference Range Interpretation Comme nts GLUCOSE (test code = URGLU) NEGATIVE MG/DL NEG-100 BILIRUBN (test code = URBILI) NEGATIVE NEGATIVE KETONE (test code = URKET) NEGATIVE MG/DL NEGATIVE BLOOD (test code = URBLD) NEGATIVE UR PH (test code = URPH) 7.5 5.0-7.5 PROTEIN (test code = URPRO) NEGATIVE MG/DL NEGATIVE NITRITES (test code = URNIT) NEGATIVE NEGATIVE UROBILINGEN (test code = URURO) 1.0 EU/DL 0.2-1.0 LEUKOCYT (test code = URLEU) NEGATIVE NEGATIVE UA COLOR (test code = UA COLOR) YELLOW YELLOW CLARITY (test code = CLARITY) CLEAR CLEAR SP GRAV (test code = URSPGRAV) 1.020 1.000-1.025 UAMICRO (test code = UAMICRO) NO
[2022-12-05 09:48] LABS: Absolute Lymphocytes (CBC) 1.9 K/uL (0.7-4.9); Hematocrit 39.1 % (39.6-49.0); Lymphocytes % 21.3 % (15.3-44.8); MCV 89.7 fL (80-100); MPV 7.4 fL (7.6-11.3); RBC Red Blood Cell Count 4.36 M/uL (4.33-5.43)
[2022-12-05 10:03] LABS: Bilirubin Total 0.4 mg/dL (0.2-1.0); Potassium 3.9 mEq/L (3.5-5.1); Protein, Total 7.6 g/dL (6.4-8.2)
--- NOTE | 2022-12-05 10:41 | RAD REPORT ---
EXAM DESCRIPTION: CTAbdomen Pelvis W Contrast - 12/05/2022 10:20 am CLINICAL HISTORY: Abdominal pain. scrotal abscess vs hernia COMPARISON: Abdomen Pelvis W Contrast dated 08/12/2022 TECHNIQUE: Biphasic CT imaging of the abdomen and pelvis was performed with 100 ml non-ionic IV cont rast. All CT scans are performed using dose optimization technique as appropriate and may include automated exposure control or mA/KV adjustment according to patient size. FINDINGS: The lung bases are clear.Small hiatal hernia. Cholecystectomy. The liver demonstrates mild fatty liver. Subtle low-density lesions in the left lobe liver too small fully characterize but likely benign. Spleen, pancreas, adrenal glands are within normal limits. Rajan gn bilateral renal cysts. Small calcifications are also present in the calices of both kidneys compat ible with bilateral nephrolithiasis. No bowel obstruction, free air, free fluid or abscess. Fat containing inguinal hernias are present bi laterally. The appendix is normal. No evidence of significant lymphadenopathy. 27 mm lesion along th e right scrotal noted which is favored to be dermatologic in origin. No suspicious bony findings. IMPRESSION: Bilateral nephrolithiasis without hydronephrosis. 27 mm low-density lesion right scrotal crease may be dermatologic in origin. However, findings are no nspecific. Mild diffuse fatty liver.
[2022-12-05] MEDS ORDERED: KETOROLAC 30 MG/ML INJ ONE (11:26)
[2022-12-05] MEDS ORDERED: LIDOCAINE 1% MPF 5 ML VIAL ONE ×2 (11:26→11:36)
[2022-12-05] MEDS ORDERED: LIDOCAINE HCL JELLY 2% 6 ML SYRINGE TOP ONE (11:39)
--- NOTE | 2022-12-05 12:14 | ER ---
Nurse's Notes [facility] Name: Renaldo Estrella Age: 62 yrs Sex: Male : 1960 Arrival Date: 12/05/2022 Time: 09:12 Bed 19 Private MD: Diagnosis: Scrotal wall abscess Presentation: 12/05 09:17 Chief complaint: Patient states: right groin pain since , feels a knot. iw Coronavirus screen: At this time, the client does not indicate any symptoms associated with coronavirus-19. Ebola Screen: Patient negative for fever greater than or equal to 101.5 degrees Fahrenheit, and additional compatible Ebola Virus Disease symptoms Patient denies exposure to infectious person. Patient denies travel to an Ebola-affected area in the 21 days before illness onset. No symptoms or risks identified at this time. Initial Sepsis Screen: Does the patient meet any 2 criteria? No. Patient's initial sepsis screen is negative. Does the patient have a suspected source of infection? No. Patient's initial sepsis screen is negative. Risk Assessment: Do you want to hurt yourself or someone else? Patient reports no desire to harm self or others. Onset of symptoms was December 02, 2022. 09:17 Method Of Arrival: Ambulatory iw 09:17 Acuity: ANUJ 3 iw Historical: - Allergies: 09:18 No Known Allergies; iw - PMHx: 09:18 Hypertensive disorder; iw - Family history:: not pertinent. Screenin:30 [facility] ED Fall Risk Assessment (Adult) History of falling in the last 3 months, vg1 including since admission No falls in past 3 months (0 pts). Abuse screen: Denies threats or abuse. Denies injuries from another. Nutritional screening: No deficits noted. Tuberculosis screening: No symptoms or risk factors identified. Assessment: 09:30 General: Appears in no apparent distress. uncomfortable, Behavior is calm, cooperative. vg1 Pain: Complains of pain in Right testicle Pain currently is 2 out of 10 on a pain scale. at worst was 8 out of 10 on a pain scale. Pain began 2-3 days ago. Cardiovascular: Patient's skin is warm and dry. Respiratory: Airway is patent Respiratory effort is even, unlabored. Derm: Skin is red, Wound noted Other: appears to be an abscess on the right testicle, rash appears to be on inner right thigh. 10:13 Reassessment: Patient appears in no apparent distress at this time. No changes from vg1 previously documented assessment. Patient and/or family updated on plan of care and expected duration. Pain level reassessed. Patient is alert, oriented x 3, equal unlabored respirations, skin warm/dry/pink. pt transported to CT via wheelchair. 10:27 Reassessment: pt back from CT. vg1 11:30 Reassessment: Patient appears in no apparent distress at this time. No changes from vg1 previously documented assessment. Patient and/or family updated on plan of care and expected duration. Pain level reassessed. Patient is alert, oriented x 3, equal unlabored respirations, skin warm/dry/pink. 12:31 Reassessment: Patient appears in no apparent distress at this time. Patient and/or vg1 family updated on plan of care and expected duration. Pain level reassessed. Patient is alert, oriented x 3, equal unlabored respirations, skin warm/dry/pink. Patient states feeling better. Vital Signs: 09:17 BP 139 / 73; Pulse 83; Resp 16; Temp 97.8; Pulse Ox 98% on R/A; Weight 104.33 kg; iw Height 5 ft. 8 in. ; Pain 10/10; 11:48 BP 151 / 66; Pulse 80; Resp 16; Pulse Ox 99% ; vg1 09:17 Body Mass Index 34.97 (104.33 kg, 172.72 cm) iw 09:17 Pain Scale: Adult iw ED Course: 09:14 Patient arrived in ED. ts1 09:16 Craig Coffey MD is Attending Physician. rt 09:18 Triage completed. iw 09:19 Zahra Dasilva, LORAINE is Primary Nurse. vg1 09:30 Patient has correct armband on for positive identification. Placed in gown. Bed in low vg1 position. Call light in reach. Side rails up X 1. 09:32 Arm band placed on. vg1 09:42 Warm blanket given. Pulse ox on. NIBP on. mm9 09:42 CMP Sent. mm9 09:42 CBC with Diff Sent. mm9 09:42 Initial lab(s) drawn, by nv, sent to lab. Inserted saline lock: 20 gauge in right mm9 antecubital area, using aseptic technique. Blood collected. 10:22 CT Abd/Pelvis - IV Contrast Only In Process Unspecified. EDMS 12:32 No provider procedures requiring assistance completed. IV discontinued, intact, vg1 bleeding controlled, No redness/swelling at site. Pressure dressing applied. Administered Medications: 11:29 Drug: Ketorolac IVP 30 mg Route: IVP; Site: right antecubital; 3 12:32 Follow up: Response: No adverse reaction vg1 11:41 Drug: LET - (Lidocaine Topical Solution (4%) 1 application, EPINEPHrine Intranasal vg1 Solution (0.1 %) 1 application, Tetracaine Topical Solution (0.5 %) 1 application, Methylcellulose Ophthalmic Powder 1 application) 3 ml Route: Topical; Site: wound; 12:32 Follow up: Response: No adverse reaction vg1 12:22 Drug: Lidocaine Infiltration (1 %) 5 ml {Note: administered by Dr Coffey .} Volume: vg1 5 ml; Route: Infiltration; 12:32 Follow up: Response: No adverse reaction vg1 Medication: 09:30 VIS not applicable for this client. vg1 Outcome: 12:13 Discharge ordered by . rt 12:32 Discharged to home ambulatory. vg1 12:32 Condition: good 12:32 Discharge instructions given to patient, Instructed on discharge instructions, follow up and referral plans. medication usage, Demonstrated understanding of instructions, follow-up care, medications, Prescriptions given X 1. 12:32 Patient left the ED. vg1 Signatures: Dispatcher [employer] EDMS Ella Springer RN RN iw Garcia, Victoria, RN RN vg1 Yoli Dick RN RN 3 Shirley Peraza mm9 Craig Coffey MD MD rt Marlene Turcios PAS PAS ts1 Corrections: (The following items were deleted from the chart) 09:19 09:17 Pulse 83bpm; Resp 16bpm; Pulse Ox 98% RA; Temp 97.8F; Pain 10/10, Adult; iw iw 09:32 09:30 No provider procedures requiring assistance completed. vg1 vg1
--- NOTE | 2022-12-05 12:14 | EDPHYS ---
Physician Documentation [facility] Name: Renaldo Estrella Age: 62 yrs Sex: Male : 1960 Arrival Date: 12/05/2022 Time: 09:12 Bed 19 Private MD: ED Physician Craig Coffey HPI: 12/05 09:46 This 62 yrs old Male presents to ER via Ambulatory with complaints of Penile Pain. rt 09:46 Patient presents to the ED with swelling to the right side of the scrotum. This has rt been present for most a week, has been worsening. Patient states that this is similar pain when he had pilonidal cyst, it is mild when he is not moving, moderate when he is moving, touches it. Denies other aggravating or alleviating factors, other acute complaints. Symptoms are moderate severity. Historical: - Allergies: 09:18 No Known Allergies; iw - PMHx: 09:18 Hypertensive disorder; iw - Family history:: not pertinent. ROS: 09:46 Constitutional: Negative for fever, chills, and weight loss, Cardiovascular: Negative rt for chest pain, palpitations, and edema, Respiratory: Negative for shortness of breath, cough, wheezing, and pleuritic chest pain, Abdomen/GI: Negative for abdominal pain, nausea, vomiting, diarrhea, and constipation, MS/Extremity: Negative for injury and deformity, Skin: Negative for injury, rash, and discoloration, Neuro: Negative for headache, weakness, numbness, tingling, and seizure, Psych: Negative for depression, anxiety, suicide ideation, homicidal ideation, and hallucinations. 09:46 : Positive for Scrotal swelling, negative for dysuria. Exam: 09:46 Constitutional: This is a well developed, well nourished patient who is awake, alert, rt and in no acute distress. Head/Face: Normocephalic, atraumatic. Chest/axilla: Normal chest wall appearance and motion. Nontender with no deformity. No lesions are appreciated. Cardiovascular: Regular rate and rhythm with a normal S1 and S2. No gallops, murmurs, or rubs. Normal PMI, no JVD. No pulse deficits. Respiratory: Lungs have equal breath sounds bilaterally, clear to auscultation and percussion. No rales, rhonchi or wheezes noted. No increased work of breathing, no retractions or nasal flaring. Abdomen/GI: Soft, non-tender, with normal bowel sounds. No distension or tympany. No guarding or rebound. No evidence of tenderness throughout. Skin: Warm, dry with normal turgor. Normal color with no rashes, no lesions, and no evidence of cellulitis. MS/ Extremity: Pulses equal, no cyanosis. Neurovascular intact. Full, normal range of motion. Neuro: Awake and alert, GCS 15, oriented to person, place, time, and situation. Cranial nerves II-XII grossly intact. Motor strength 5/5 in all extremities. Sensory grossly intact. Cerebellar exam normal. Normal gait. Psych: Awake, alert, with orientation to person, place and time. Behavior, mood, and affect are within normal limits. 09:46 : 2 cm apparent abscess to the right lateral scrotum, testicles are within normal limits, penis is normal, no crepitus felt.. Vital Signs: 09:17 BP 139 / 73; Pulse 83; Resp 16; Temp 97.8; Pulse Ox 98% on R/A; Weight 104.33 kg; iw Height 5 ft. 8 in. ; Pain 10/10; 11:48 BP 151 / 66; Pulse 80; Resp 16; Pulse Ox 99% ; vg1 09:17 Body Mass Index 34.97 (104.33 kg, 172.72 cm) iw 09:17 Pain Scale: Adult iw Procedures: 12:17 I \T\ D: Incision and drainage was performed for an abscess of the Right scrotum Prepped rt with Betadine, Anesthetized with 2 ml's 1% Lidocaine. Incised with #11 blade. Drained moderate amount purulent fluid. Dressing: sterile 4x4 gauze, the patient tolerated the procedure well. MDM: 09:20 Patient medically screened. rt 12:17 Differential diagnosis: Scrotal wall abscess, scrotal abscess, Flor's gangrene. rt Data reviewed: vital signs, nurses notes, lab test result(s), radiologic studies. 12/05 09:30 Order name: CBC with Diff; Complete Time: 10:03 rt 12/05 09:30 Order name: CMP; Complete Time: 10:03 rt 12/05 09:30 Order name: CT Abd/Pelvis - IV Contrast Only; Complete Time: 10:46 rt Administered Medications: 11:29 Drug: Ketorolac IVP 30 mg Route: IVP; Site: right antecubital; 3 12:32 Follow up: Response: No adverse reaction vg1 11:41 Drug: LET - (Lidocaine Topical Solution (4%) 1 application, EPINEPHrine Intranasal vg1 Solution (0.1 %) 1 application, Tetracaine Topical Solution (0.5 %) 1 application, Methylcellulose Ophthalmic Powder 1 application) 3 ml Route: Topical; Site: wound; 12:32 Follow up: Response: No adverse reaction vg1 12:22 Drug: Lidocaine Infiltration (1 %) 5 ml {Note: administered by Dr Coffey .} Volume: vg1 5 ml; Route: Infiltration; 12:32 Follow up: Response: No adverse reaction vg1 Disposition Summary: 12/05/22 12:13 Discharge Ordered Location: Home rt Problem: new rt Symptoms: have improved rt Condition: Stable rt Diagnosis - Scrotal wall abscess rt Followup: rt - With: Private Physician - When: 2 - 3 days - Reason: Discharge Instructions: - Discharge Summary Sheet rt - Skin Abscess rt Forms: - Medication Reconciliation Form rt - Thank You Letter rt - Antibiotic Education rt - Prescription Opioid Use rt Prescriptions: - Doxycycline Hyclate 100 mg Oral Tablet - take 1 tablet by ORAL route every 12 hours; 20 tablet; Refills: 0, Product rt Selection Permitted Signatures: Dispatcher [employer] Ella Paredes, RN Zahra Angel RN RN vg1 Yoli Dick RN RN 3 Craig Coffey MD MD rt
[2022-12-05 12:53] VITALS: TEMP 97.8
[2022-12-05 12:59] VITALS: BP 151/66; O2SAT 99
== END 2022-12-05 12:32 | disposition home or self-care (01) ==
LOC: ER 09:12
PROC: 0H9AXZZ Drainage of Inguinal Skin, External Approach (ICD-10-PCS; principal; 2022-12-05)
DX: N49.2 Inflammatory disorders of scrotum (principal)
CPT/HCPCS: 36415; 74177; 80053; 85025; J2001; Q9967